=== PATIENT | female | born 1980 | race Caucasian/White ===

== ENCOUNTER 2017-01-02 08:22 | Inpatient (IN) | payer BC ==
[2017-01-02] MEDS ORDERED: Water For Irrigation,Sterile 1,000 ML Container IRR PRN (08:48)
[2017-01-02] MEDS ORDERED: Nalbuphine 10 MG/1 ML Vial IVPUSH PRN (08:48)
[2017-01-02] MEDS ORDERED: Methylergonovine 0.2 MG/1 ML Amp IM PRN (08:48)
[2017-01-02] MEDS ORDERED: Carboprost Tromethamine 250 MCG/1 ML Amp IM PRN (08:48)
[2017-01-02] MEDS ORDERED: Misoprostol 200 MCG Tab PO PRN (08:48)
[2017-01-02] MEDS ORDERED: Lidocaine 1% 50 ML MDV INJECT PRN (08:48)
[2017-01-02] MEDS ORDERED: Sodium Chloride 0.9% 10 ML Syringe FLUSH PRN (08:48)
[2017-01-02] MEDS ORDERED: Sodium Chloride 0.9% 2.5 ML Syringe FLUSH PRN (08:48)
[2017-01-02] MEDS ORDERED: Oxytocin/Lactated Ringers 30 UNIT/500 ML BAG IV SCH (09:00)
[2017-01-02] MEDS: Butorphanol 1 MG/ML SDV IVPUSH PRN ×2 (11:57→14:27)
[2017-01-02] MEDS: Lactated Ringers 1,000 ML IV SCH ×5 (14:25→21:45)
[2017-01-02] MEDS ORDERED: fentaNYL 100 MCG/2 ML SDV ONE (15:06)
[2017-01-02] MEDS ORDERED: Ropivacaine 0.2% 2 MG/ML 20 ML SDV ONE (15:06)
[2017-01-02] MEDS ORDERED: Ropivacaine HCl/PF 100 ML ONE (15:06)
--- NOTE | 2017-01-02 15:38 | PCM.PREANE ---
Preanesthetic Assessment - ANESTHESIA/TRANSFUSION/FAMILY HX Anesthesia/Transfusion History: No Prior Transfusion(s), Prior Anesthesia Type of Anesthesia Reaction: Denies: Allergy, Anesthesia Awareness, Excessive Somnolence, Excessive Nausea/Vomiting, Excessive Itching, Excessive Shivering, Malignant Hyperthermia, Malignant Hyperthermia, Family History, Pseudocholinesterase Deficiency, Pseudocholinesterase Deficiency, Family History of, Urinary Retention, Unknown, Other (see below) Family History of Anesthesia Reaction: No - REVIEW OF SYSTEMS Constitutional: Reports: no symptoms WET END HELPER: Reports: no symptoms, seizure (history of infantile seizures, none as adult ) Respiratory: Reports: no symptoms Cardiovascular: Reports: no symptoms GI: Reports: no symptoms Other: Reports: none - PHYSICAL ASSESSMENT Height: 1.77 m Weight: 89.811 kg NPO Status Date: 01/02/17 NPO Status Time: 15:31 (clear liquids) ASA Class: 2 Mental Status: alert & oriented x3 Airway Class: Mallampati = 2 Dentition: Reports: normal dentition Thyro-Mental Finger Breadths: 3 Mouth Opening Finger Breadths: 3 ROM/Head Extension: full Respiratory Status: lungs clear to auscultation bilaterally Cardiovascular Status: regular rate & rhythm, normal S1, S2, no murmur, blood pressure WNL - LAB Values: Laboratory Last Values WBC 12.99 K/uL (4.0-11.0) H 01/02/17 11:42 RBC 4.18 M/uL (4.30-5.90) L 01/02/17 11:42 Hgb 11.3 g/dL (12.0-16.0) L 01/02/17 11:42 Hct 33.6 % (36.0-46.0) L 01/02/17 11:42 MCV 80.4 fL (80.0-98.0) 01/02/17 11:42 MCH 27.0 pg (27.0-32.0) 01/02/17 11:42 MCHC 33.6 g/dL (31.0-37.0) 01/02/17 11:42 RDW Std Deviation 42.5 fl (28.0-62.0) 01/02/17 11:42 RDW Coeff of Rajinder 15 % (11.0-15.0) 01/02/17 11:42 Plt Count 157 K/uL (150-400) 01/02/17 11:42 MPV 12.30 fL (7.40-12.00) H 01/02/17 11:42 Nucleated RBC % 0.0 /100WBC 01/02/17 11:42 Nucleated RBCs # 0 K/uL 01/02/17 11:42 Blood Type A POSITIVE 01/02/17 11:42 Antibody Screen NEGATIVE 01/02/17 11:42 - ALLERGIES Allergies/Adverse Reactions: Allergies Allergy/AdvReac Type Severity Reaction Status Date / Time animal dander Allergy Itching Verified 11/19/16 00:51 sulfadiazine Allergy Rash Verified 11/19/16 00:51 MMR VACCINE Allergy Vomiting Uncoded 11/19/16 00:51 - BLOOD Blood Available: Yes Product(s) Available: PRBC - ANESTHESIA PLAN Anesthesia Type Planned: epidural - ACKNOWLEDGEMENTS Pt an appropriate candidate for the planned anesthesia: Yes Alternatives and risks of anesthesia discussed w pt/guardian: Yes Pt/Guardian understands and agree with anesthesia plan: Yes PreAnesthesia Questionnaire [employer] P[employer]CHER History: Reports: , Other (see below) Other OB/BYN History: ovarian cyst Neurological History: Reports: Seizure Other Neuro History: seizure as an infant - Past Surgical History Musculoskeletal Surgical History: Reports: Other (see below) Other Musculoskeletal Surgeries/Procedures:: right wrist & left knee surgery - SUBSTANCE USE Smoking Status *Q: Never Smoker Recreational Drug Use History: No - CURRENT (IN HOUSE) MEDS Current Meds: Current Medications Butorphanol Tartrate (Stadol) 1 mg IVPUSH Q1H PRN PRN Reason: Pain Last Admin: 01/02/17 14:27 Dose: 1 mg Carboprost Tromethamine (Hemabate Ds) 250 mcg IM ASDIRECTED PRN PRN Reason: Post Hemorrhage Lactated Ringer's (Ringers, Lactated) 1,000 mls @ 150 mls/hr IV ASDIRECTED LASHELL Last Admin: 01/02/17 15:13 Dose: 150 mls/hr Oxytocin/Lactated Ringer's (Pitocin In Lr 30 Units/500 Ml) 30 unit in 500 mls @ 2 mls/hr IV TITRATE LASHELL; 2 MUNITS/MIN PRN Reason: Protocol Stop: 01/03/17 08:59 Lidocaine HCl (Xylocaine 1%) 50 ml INJECT .ONCE PRN PRN Reason: Laceration repair Methylergonovine Maleate (Methergine) 0.2 mg IM ASDIRECTED PRN PRN Reason: Post Hemorrhage Misoprostol (Cytotec) 200 mcg PO .ONCE PRN PRN Reason: Post Hemorrhage Sodium Chloride (Saline Flush) 10 ml FLUSH ASDIRECTED PRN PRN Reason: Keep Vein Open Sodium Chloride (Saline Flush) 2.5 ml FLUSH ASDIRECTED PRN PRN Reason: Keep Vein Open Sterile Water (Sterile Water For Irrigation) 1,000 ml IRR ASDIRECTED PRN PRN Reason: delivery Discontinued Medications Fentanyl (Sublimaze) Confirm Administered Dose 300 mcg .ROUTE .STK-MED ONE Stop: 01/02/17 15:07 Ropivacaine (Naropin 0.2%) Confirm Administered Dose 100 mls @ as directed .ROUTE .STK-MED ONE Stop: 01/02/17 15:07 Nalbuphine HCl (Nubain) 10 mg IVPUSH Q1H PRN PRN Reason: Pain (severe 7-10) Stop: 01/02/17 10:49 Ropivacaine (Naropin 0.2%) Confirm Administered Dose 20 ml .ROUTE .STK-MED ONE Stop: 01/02/17 15:07 - Free Text/Narrative Note: Labor Analgesia/Epidural Procedure start date: 01/02/17 time: 1448 Attending provider aware Chart reviewed Permit signed Labs reviewed VS/FHR reviewed Pt identified/ID band Pt assessed Risks/Benefits discussed and accepted Monitors in place (BP, HR, SPO2) Patient, Site, Procedure Verification, Pause. pain "10/10" Fluid bolus infused (fluid type and amount): 1200 ml LR Position: Sitting @1454 Prep: Betadine X 3 Sterile Drape Intradermal Wheal: 3 ml 1% Lidocaine Regional placement level: L3-4 Needle: 17 g Tuohy Approach: Midline Technique: TRU glass syringe with 3 ml Sterile water TRU needle depth: 5 cm Paresthesia: None Fluid Obtained: None Catheter insertion time: 1500 Catheter depth at skin: 20 cm Test Dose Time: 1501 RX: 3 ml 1.5% lidocaine with 1:200,000 epi Response: Negative Loading dose Time: 8379-2270 RX: 100 mcg fentanyl followed by 5 ml 0.2% ropivacaine Pt position: semi fowlers with ANDREA Continuous infusion Start Time: 1516 RX: 100 ml 0.2% ropivacaine with 200 mcg fentanyl added Continuous infusion rate: 8 ml/hr BATH HOUSE ATTENDANT bolus option: 5 ml every 15 min Pt response Post procedure pain level: "0/10" VS and FHR monitored in unit post placement (See OB traceview for documentation. ) Procedure end date: 01/02/17 time: 154
[2017-01-02] MEDS ORDERED: Acetaminophen 500 MG Tab PO ONE (21:32)
[2017-01-02] MEDS ORDERED: ceFAZolin 2 GM in Premix Bag 1 BAG IV ONE (21:33)
[2017-01-03] MEDS ORDERED: Bisacodyl 10 MG Supp RECTAL PRN (03:43)
[2017-01-03] MEDS ORDERED: Lanolin 100% Cream 7 GM Tube TOP PRN (03:43)
[2017-01-03] MEDS ORDERED: Docusate Sodium 100 MG Cap PO PRN (03:43)
[2017-01-03] MEDS ORDERED: Benzocaine/Menthol 20%-0.5% Spray 78 GM Cannister TOP PRN (03:43)
[2017-01-03] MEDS ORDERED: Witch Hazel Medicated Pads 40/Jar TOP PRN (03:43)
[2017-01-03] MEDS ORDERED: Acetaminophen 500 MG Tab PO PRN (03:43)
[2017-01-03] MEDS ORDERED: Ibuprofen 800 MG Tab PO PRN (03:43)
[2017-01-03] MEDS ORDERED: oxyCODONE 5 MG Tab PO PRN (03:43)
[2017-01-03] MEDS ORDERED: ceFAZolin 2 GM in Premix Bag 1 BAG IV SCH (04:00)
--- NOTE | 2017-01-03 04:48 | PCM48HPAN ---
Post Anesthesia Note - EVALUATION WITHIN 48HRS OF ANESTHETIC Vital Signs in Normal Range: Yes Patient Participated in Evaluation: Yes Respiratory Function Stable: Yes Airway Patent: Yes Cardiovascular Function Stable: Yes Hydration Status Stable: Yes Pain Control Satisfactory: Yes Nausea and Vomiting Control Satisfactory: Yes Mental Status Recovered: Yes - COMMENTS/OBSERVATIONS Free Text/Narrative:: Pt has full return of sensation and motor movement to lower extremities. Denies headache or any other problems associated with epidural.
--- NOTE | 2017-01-04 00:57 | OR ---
SURGEON: Susan Mcintosh DATE OF PROCEDURE: 01/03/2017 BRIEF PRE-DELIVERY HISTORY: This is a 36-year-old, G1, P0, who presented to Labor and Delivery with complaints of painful uterine contractions. The patient was admitted after she was found to be 3 to 4 cm dilated, 70% effaced, and -1 station. Eventually, amniotomy was performed for clear fluid. The patient got progressively uncomfortable and received her epidural after Jacuzzi and IV pain medications were no longer helping with the pain. The patient when examined was found to be 6 cm dilated. The patient with cervical exam had no significant cervical change after several hours of being 6 cm. The patient's labor was augmented with IV Pitocin. heart tracing was significant overall for category 1 status, but intermittently there were prolonged contractions. There were late decelerations and areas of tachysystole. Pitocin was turned on and off. The patient was repositioned. The patient was given oxygen. Eventually, scalp electrode was placed followed by an IUPC. The amniotic fluid was eventually noted to be stained from meconium. The patient eventually progressed to completely dilated and +2 status and started maternal expulsive efforts. PREOPERATIVE DIAGNOSES: 1. Intrauterine at 40 weeks and 3 days. 2. Group B streptococcus negative. 3. Labor augmentation with Pitocin. 4. Maternal pyrexia. POSTOPERATIVE DIAGNOSES: 1. Intrauterine at 40 weeks and 3 days. 2. Delivered. 3. Second-degree vaginal laceration. PROCEDURES PERFORMED: 1. Spontaneous assisted vaginal delivery. 2. Repair of midline second-degree vaginal laceration. ESTIMATED BLOOD LOSS: 250. ANESTHESIA: Epidural and local. FINDINGS: A viable female in vertex presentation with score of 8 and 9 at 1 and 5 minutes respectively and weight of 3640 g. Normal intact placenta with 3- vessel cord. Midline second-degree vaginal laceration. Normal intact placenta with 3-vessel cord. CONDITION: Postoperatively, the patient and tolerated the procedure well. DESCRIPTION OF PROCEDURE: This female under epidural anesthesia delivered a viable female infant with score of 8 and 9 and weight of 3640 g. Delivery was spontaneous vaginal delivery. Upon delivery of infant vertex, the neck was checked. There was a nuchal to be reduced. With gentle downward traction, the anterior shoulder was delivered followed by the body. The infant was not stimulated at first secondary to meconium and health unit clerk was present at delivery. The infant was briefly bulb suctioned prior to passing off to the waiting health unit clerk. The infant was vigorous at delivery. After delivery of the , the cord blood and cord gases were collected and sent for analysis. IV Pitocin was started in bolus fashion to prevent excessive maternal blood loss and to help expel the placenta. With signs of placental separation, a fundal massage was completed along with traction on the umbilical cord, a normal intact placenta with 3-vessel cord was delivered. After delivery of infant and placenta, the vagina, perineum, and rectum were explored and the patient had an intact perineum and a midline second-degree vaginal laceration that just required usage of 3-0 Vicryl suture in a running, locked fashion in a two-layer closure. Afterwards, the lower uterine segment and vagina was cleared of all clots and debris. The patient was cleansed. Pads were changed. Bed was returned to functioning status. The patient and tolerated the procedure well. MIKAEL CARSON /[id number] MTDD
--- NOTE | 2017-01-04 08:16 | PCM.PNPP ---
- General Info Date of Service: 01/04/17 Functional Status: Reports: pain controlled, tolerating diet, ambulating, urinating - Review of Systems General: Reports: no symptoms HEENT: Reports: no symptoms Pulmonary: Reports: no symptoms Cardiovascular: Reports: no symptoms Gastrointestinal: Reports: No symptoms Genitourinary: Reports: no symptoms Musculoskeletal: Reports: no symptoms Skin: Reports: no symptoms Neurological: Reports: no symptoms Psychiatric: Reports: no symptoms - General Info Date of Service: 01/04/17 - Patient Data Vital Signs - most recent: Last Vital Signs Temp 36.7 C 01/04/17 03:27 Pulse 88 01/04/17 03:27 Resp 16 01/04/17 03:27 BP 99/56 L 01/04/17 03:27 Pulse Ox 98 01/04/17 03:27 Weight - most recent: 89.811 kg Lab Results - last 24 hrs: Laboratory Results - last 24 hr 01/04/17 Range/Units 04:42 Hgb 9.4 L (12.0-16.0) g/dL Hct 29.2 L (36.0-46.0) % Med Orders - Current: Current Medications Acetaminophen (Tylenol Extra Strength) 500 mg PO Q4H PRN PRN Reason: Pain Benzocaine/Menthol (Dermoplast Pain Relief 20%-0.5% [place]) 78 gm TOP ASDIRECTED PRN PRN Reason: Perineal Comfort Measure Bisacodyl (Dulcolax) 10 mg RECTAL .ONCE PRN PRN Reason: Constipation Butorphanol Tartrate (Stadol) 1 mg IVPUSH Q1H PRN PRN Reason: Pain Last Admin: 01/02/17 14:27 Dose: 1 mg Carboprost Tromethamine (Hemabate Ds) 250 mcg IM ASDIRECTED PRN PRN Reason: Post Hemorrhage Docusate Sodium (Colace) 100 mg PO BID PRN PRN Reason: Constipation Emollient Ointment (Lansinoh Hpa) 0 gm TOP ASDIRECTED PRN PRN Reason: Sore Nipples Lactated Ringer's (Ringers, Lactated) 1,000 mls @ 150 mls/hr IV ASDIRECTED LASHELL Last Admin: 01/02/17 21:45 Dose: 150 mls/hr Ibuprofen (Motrin) 800 mg PO Q6H PRN PRN Reason: Pain Last Admin: 01/03/17 10:51 Dose: 800 mg Lidocaine HCl (Xylocaine 1%) 50 ml INJECT .ONCE PRN PRN Reason: Laceration repair Last Admin: 01/03/17 02:55 Dose: 50 ml Methylergonovine Maleate (Methergine) 0.2 mg IM ASDIRECTED PRN PRN Reason: Post Hemorrhage Misoprostol (Cytotec) 200 mcg PO .ONCE PRN PRN Reason: Post Hemorrhage Oxycodone HCl (Oxycodone) 5 mg PO Q2H PRN PRN Reason: Pain Sodium Chloride (Saline Flush) 10 ml FLUSH ASDIRECTED PRN PRN Reason: Keep Vein Open Sodium Chloride (Saline Flush) 2.5 ml FLUSH ASDIRECTED PRN PRN Reason: Keep Vein Open Sterile Water (Sterile Water For Irrigation) 1,000 ml IRR ASDIRECTED PRN PRN Reason: delivery Witch [place] (Tucks) 1 pad TOP ASDIRECTED PRN PRN Reason: comfort care Discontinued Medications Acetaminophen (Tylenol Extra Strength) 1,000 mg PO ONETIME ONE Stop: 01/02/17 21:33 Last Admin: 01/02/17 21:43 Dose: 1,000 mg Fentanyl (Sublimaze) Confirm Administered Dose 300 mcg .ROUTE .STK-MED ONE Stop: 01/02/17 15:07 Last Admin: 01/02/17 19:37 Dose: Not Given Oxytocin/Lactated Ringer's (Pitocin In Lr 30 Units/500 Ml) 30 unit in 500 mls @ 2 mls/hr IV TITRATE LASHELL; 2 MUNITS/MIN PRN Reason: Protocol Stop: 01/03/17 08:59 Last Titration: 01/03/17 01:25 Dose: 4 munits/min, 4 mls/hr Ropivacaine (Naropin 0.2%) Confirm Administered Dose 100 mls @ as directed .ROUTE .STK-MED ONE Stop: 01/02/17 15:07 Last Admin: 01/02/17 19:36 Dose: Not Given Cefazolin Sodium/Dextrose 2 gm (/ Premix) 50 mls @ 100 mls/hr IV ONETIME ONE Stop: 01/02/17 22:02 Last Admin: 01/02/17 21:44 Dose: 100 mls/hr Cefazolin Sodium/Dextrose 2 gm (/ Premix) 50 mls @ 100 mls/hr IV Q8H [facility] Last Admin: 01/03/17 09:33 Dose: Not Given Nalbuphine HCl (Nubain) 10 mg IVPUSH Q1H PRN PRN Reason: Pain (severe 7-10) Stop: 01/02/17 10:49 Ropivacaine (Naropin 0.2%) Confirm Administered Dose 20 ml .ROUTE .STK-MED ONE Stop: 01/02/17 15:07 Last Admin: 01/02/17 19:36 Dose: Not Given - Infant Interaction Infant Disposition, : [place] in Room with Family Interaction: Holding Infant Infant Feeding: Attempted ; Nursed Fair/Poor, Continues to Breastfeed Support Person: - Recovery Exam Fundal Tone: Firm Fundal Level: At Umbilicus Fundal Placement: Midline Lochia Amount: Small Lochia Color: Rubra/Red Perineum Description: Intact, Minimal Bruising/Swelling Other Perinuem Description: 2nd degree laceration with repair Episiotomy/Laceration: Approximated Bladder Status: Voiding Urinary Elimination: Voided - Exam General: alert, oriented Neck: supple Lungs: Clear to auscultation, Normal respiratory effort Cardiovascular: regular rate, regular rhythm Abdomen: bowel sounds present, soft, no tenderness Extremities: no calf tenderness Skin: warm, dry, intact Neurological: no new focal deficit Psy/Mental Status: alert, normal affect, normal mood - Problem List & Annotations (1) Vaginal delivery SNOMED Code(s): 390014618 Code(s): O80 - ENCOUNTER FOR FULL-TERM UNCOMPLICATED DELIVERY Status: Acute Current Visit: Yes - Problem List Review Problem List Initiated/Reviewed/Updated: Yes - My Orders Last 24 Hours: My Active Orders 01/04/17 08:12 Ready for Discharge [RC] PER UNIT ROUTINE - Assessment Assessment:: PPD#1 S/p SAVD Doing well Desires discharge home today - Plan Plan:: Pelvic rest for 6wks Bleeding precautions given Infection precautions given Thrombotic precautions given blues/depression precautions given
[2017-01-04 10:29] VITALS: BP 116/72
== END 2017-01-04 12:10 | disposition home or self-care (01) | DRG 560 ==
LOC: MW.OBCHECK 08:22 → MW.OB 08:28 → MW.OBCHECK 08:55 → OBSVTOIN 01-03 02:39 → MW.OB 01-03 09:37
PROVIDERS: ADMIT Obstetrics & Gynecology; ATTEND Obstetrics & Gynecology
PROC: 10E0XZZ Delivery of Products of Conception, External Approach (ICD-10-PCS; principal; 2017-01-03)
PROC: 0KQM0ZZ Repair Perineum Muscle, Open Approach (ICD-10-PCS; 2017-01-03)
PROC: 10907ZC Drainage of Amniotic Fluid, Therapeutic from Products of Conception, Via Natural or Artificial Opening (ICD-10-PCS; 2017-01-03)
DX: O70.1 Second degree perineal laceration during delivery (principal); O75.2 Pyrexia during labor, not elsewhere classified; Z3A.40 40 weeks gestation of pregnancy; Z37.0 Single live birth
CPT/HCPCS: 01967; 36415; 59025; 85014; 85018; 85027; 86850; 86900; 86901; A9270-GY; J0595; J0690; J7120

== ENCOUNTER 2021-01-04 02:58 | Inpatient (IN) | payer BC ==
[2021-01-04] MEDS ORDERED: Sodium Chloride 0.9% 10 ML SDV IV PRN (03:19)
[2021-01-04] MEDS ORDERED: Carboprost Tromethamine 250 MCG/1 ML Amp IM PRN (03:19)
[2021-01-04] MEDS ORDERED: Sodium Chloride 0.9% 10 ML Syringe FLUSH PRN (03:19)
[2021-01-04] MEDS ORDERED: Nalbuphine 10 MG/1 ML Vial IVPUSH PRN (03:19)
[2021-01-04] MEDS ORDERED: Sodium Chloride 0.9% 2.5 ML Syringe FLUSH PRN (03:19)
[2021-01-04] MEDS ORDERED: Tranexamic Acid 1,000 MG in Sodium Chloride 0.9% 100 ML IV PRN (03:19)
[2021-01-04] MEDS ORDERED: Butorphanol 1 MG/ML SDV IVPUSH PRN (03:19)
[2021-01-04] MEDS ORDERED: Lidocaine 1% 50 ML MDV INJECT PRN (03:19)
[2021-01-04] MEDS ORDERED: Water For Irrigation,Sterile 1,000 ML Container IRR PRN (03:19)
[2021-01-04] MEDS ORDERED: Methylergonovine 0.2 MG/1 ML Amp IM PRN (03:19)
[2021-01-04] MEDS ORDERED: Misoprostol 200 MCG Tab PO PRN (03:19)
[2021-01-04] MEDS ORDERED: Oxytocin/0.9 % Sodium Chloride 30 UNIT/500 ML BAG ONE (03:20)
[2021-01-04] MEDS ORDERED: Lactated Ringers 1,000 ML IV SCH (03:30)
[2021-01-04] MEDS ORDERED: Oxytocin/0.9 % Sodium Chloride 30 UNIT/500 ML BAG IV SCH (03:30)
[2021-01-04] MEDS ORDERED: Oxytocin 10 Units/1 ML SDV ONE (03:45)
[2021-01-04] MEDS ORDERED: Lidocaine 1% 50 ML MDV ONE (03:45)
[2021-01-04] MEDS ORDERED: Benzocaine/Menthol 20%-0.5% Spray 78 GM Cannister TOP PRN (04:23)
[2021-01-04] MEDS ORDERED: oxyCODONE 5 MG Tab PO PRN (04:23)
[2021-01-04] MEDS ORDERED: Acetaminophen 500 MG Tab PO PRN (04:23)
[2021-01-04] MEDS ORDERED: Bisacodyl 10 MG Supp RECTAL PRN (04:23)
[2021-01-04] MEDS ORDERED: Witch Hazel Medicated Pads 40/Jar TOP PRN (04:23)
[2021-01-04] MEDS ORDERED: Docusate Sodium 100 MG Cap PO PRN (04:23)
[2021-01-04] MEDS ORDERED: Lanolin 100% Cream 7 GM Tube TOP PRN (04:23)
--- NOTE | 2021-01-04 04:29 | PCM.DEL ---
L & D Note - General Info Date of Service: 01/04/21 Mother's Due Date: 01/06/21 - Delivery Note Labor: Spontaneous Delivery Outcome: Livebirth Infant Delivery Method: Spontaneous Vaginal Delivery-Single Presentation: Vertex Nuchal Cord: None Anesthesia Type: Local Anesthetic: Lidocaine (Xylocaine) 1% Plain Local Anesthetic Volume: 5cc Amniotic Fluid Description: Clear Episiotomy Type: None Laceration: 1st Degree Suture type: Vicryl Suture size: 3-0 Placenta: Intact, Spontaneous Cord: 3 Vessels Estimated Blood Loss: 300 Resuscitation Needed: No [place]: Suctioned, Bulb Syringe, Stimulated, Warmed, Warmer Used Score 1 min: 8 Score 5 min: 9 Delivery Comments (Free Text/Narrative):: Live female infant - General Info Date of Service: 01/04/21 - Patient Data Weight - Most Recent: 93.44 kg Lab Results Last 24 Hours: Laboratory Results - last 24 hr 01/04/21 01/04/21 Range/Units 03:20 03:20 WBC 17.23 H (4.0-11.0) K/uL RBC 4.45 (4.30-5.90) M/uL Hgb 11.4 L (12.0-16.0) g/dL Hct 34.5 L (36.0-46.0) % MCV 77.5 L (80.0-98.0) fL MCH 25.6 L (27.0-32.0) pg MCHC 33.0 (31.0-37.0) g/dL RDW Std Deviation 42.0 (28.0-62.0) fl RDW Coeff of Rajinder 15 (11.0-15.0) % Plt Count 201 (150-400) K/uL MPV 12.80 H (7.40-12.00) fL Nucleated RBC % 0.0 /100WBC Nucleated RBCs # 0 K/uL Blood Type A POSITIVE Antibody Screen NEGATIVE - Problem List & Annotations (1) Vaginal delivery SNOMED Code(s): 337281032 Code(s): O80 - ENCOUNTER FOR FULL-TERM UNCOMPLICATED DELIVERY Status: Acute Current Visit: No - Problem List Review Problem List Initiated/Reviewed/Updated: Yes - My Orders Last 24 Hours: My Active Orders 01/04/21 03:19 Patient Status [ADT] Routine May Shower [RC] ASDIRECTED Notify Provider [RC] PRN Up ad Vani [RC] ASDIRECTED Vital Signs [RC] PER UNIT ROUTINE Butorphanol [Stadol] 1 mg IVPUSH Q1H PRN Carboprost Tromethamine [Hemabate DS] 250 mcg IM ASDIRECTED PRN Lidocaine 1% [Xylocaine 1%] 50 ml INJECT ONETIME PRN Methylergonovine [Methergine] 0.2 mg IM ASDIRECTED PRN Nalbuphine [Nubain] 10 mg IVPUSH Q1H PRN Sodium Chloride 0.9% [Normal Saline] 10 ml IV ASDIRECTED PRN Sodium Chloride 0.9% [Saline Flush] 10 ml FLUSH ASDIRECTED PRN Sodium Chloride 0.9% [Saline Flush] 2.5 ml FLUSH ASDIRECTED PRN Tranexamic Acid [Cyklokapron] 1,000 mg Sodium Chloride 0.9% [Normal Saline] 100 ml IV ONETIME Water For Irrigation,Sterile [Sterile Water for Irrigation] 1,000 ml IRR ASDIRECTED PRN miSOPROStoL [Cytotec] 200 mcg PO ONETIME PRN Scalp Electrode [WOMSER] Per Unit Routine Peripheral IV Insertion Adult [OM.PC] Routine Resuscitation Status Routine 01/04/21 03:20 RPR (SYPHILIS SERO) W/ RFLX [REF] Routine 01/04/21 03:30 Lactated Ringers [Ringers, Lactated] 1,000 ml IV ASDIRECTED Oxytocin/0.9 % Sodium Chloride [Oxytocin 30 Unit/500 ML-NS] 30 unit in 500 ml IV TITRATE 01/04/21 04:23 Patient Status [ADT] Routine May Shower [RC] ASDIRECTED Notify Provider Vital Signs [RC] ASDIRECTED Up ad Vani [RC] ASDIRECTED Vital Signs [RC] PER UNIT ROUTINE Acetaminophen [Tylenol Extra Strength] 1,000 mg PO Q6H PRN Benzocaine/Menthol [Dermoplast Pain Relief 20%-0.5% [place]] 78 gm TOP ASDIRECTED PRN Docusate Sodium [Colace] 100 mg PO BID PRN Ibuprofen [Motrin] 800 mg PO Q8H PRN Lanolin [Lansinoh HPA] See Dose Instructions TOP ASDIRECTED PRN bisacodyL [Dulcolax] 10 mg RECTAL ONETIME PRN oxyCODONE 5 mg PO Q2H PRN witch [place] [Tucks] 1 pad TOP ASDIRECTED PRN Assess Lochia [WOMSER] Per Unit Routine Assess Uterine Involution [WOMSER] Per Unit Routine Breast Pump [WOMSER] Per Unit Routine Peripheral IV Discontinue [OM.PC] Routine 01/04/21 04:24 Cooling Warming Measures [RC] ASDIRECTED Ice Therapy [OM.PC] Per Unit Routine Perineal Care [OM.PC] Per Unit Routine Sitz Bath [OM.PC] Per Unit Routine 01/04/21 Breakfast Regular Diet [DIET] 01/05/21 05:11 HEMOGLOBIN/HEMATOCRIT,HH [HEME] Timed - Assessment Assessment:: 40yo s/p at 39w5d - Plan Plan:: Admit to unit for routine care. IV came out during delivery, received 10U IM Pitocin during third stage of labor.
[2021-01-04] MEDS: Ibuprofen 800 MG Tab PO PRN (04:49)
--- NOTE | 2021-01-04 05:37 | OR ---
SURGEON: Mey Flynn MD DATE OF PROCEDURE: 01/04/2021 PREOPERATIVE DIAGNOSES: 1. A 40-year-old G2, P1-0-0-1 at 39 weeks 5 days gestation. 2. Labor. 3. Group B Streptococcus negative. 4. Advanced maternal age. POSTOPERATIVE DIAGNOSES: 1. A 40-year-old G2, P2-0-0-2 at 39 weeks and 5 days gestation. 2. Labor. 3. Group B Streptococcus negative. 4. Advanced maternal age. 5. First-degree perineal laceration. PROCEDURE: Spontaneous vaginal delivery and repair of first-degree perineal laceration PRIMARY SURGEON: Mey Flynn MD. ANESTHESIA: Local. ESTIMATED BLOOD LOSS: 300 mL. FINDINGS: Live female , cephalic presentation. score of 8 and 9 at one and five minutes respectively. Weight pending. Placenta intact with 3-vessel cord. First-degree perineal laceration. INDICATIONS: This is a 40-year-old G2, P1-0-0-1 who presented at 39 weeks and 5 days gestation complaining of rupture of membranes and labor. Upon presentation, her cervix was found to be 6 cm dilated and rupture of membranes was confirmed. She progressed to complete cervical dilation shortly thereafter. DESCRIPTION OF PROCEDURE: I arrived to the room with head at +3 station. Over the next 5 contractions, the patient pushed and delivered a live female . The head was delivered, followed quickly by the shoulders and remainder of the body. The was placed on maternal abdomen. After approximately 60 seconds, the cord was clamped and cut. Cord blood was obtained. The placenta then delivered intact with 3-vessel cord. The perineum was inspected and a first-degree perineal laceration was noted. This was repaired to anatomy and hemostasis with 3-0 Vicryl after infiltration with 1% lidocaine. During delivery of the placenta, the patient's IV came out. She received 10 units of intramuscular Pitocin for uterine tone. The fundus was firm below the umbilicus with minimal bleeding. The patient and infant tolerated the delivery well. DANIELLE / KRISTIANL /[id number] MTDPeg
[2021-01-05 08:17] VITALS: BP 115/75; PULSE 81
--- NOTE | 2021-01-05 08:44 | PCM.PNPP ---
- General Info Date of Service: 01/05/21 Functional Status: Reports: Pain Controlled, Tolerating Diet, Ambulating, Urinating - Review of Systems General: Reports: Fatigue. Denies: Fever, Weakness Pulmonary: Denies: Shortness of Breath Cardiovascular: Denies: Chest Pain, Palpitations, Lightheadedness Gastrointestinal: Denies: Abdominal Pain, Nausea, Vomiting Genitourinary: Denies: Flank Pain Musculoskeletal: Reports: No Symptoms Skin: Reports: No Symptoms Neurological: Reports: No Symptoms Psychiatric: Reports: No Symptoms - General Info Date of Service: 01/05/21 - Patient Data Vital Signs - Most Recent: Last Vital Signs Temp 36.9 C 01/05/21 07:45 Pulse 81 01/05/21 07:45 Resp 17 01/05/21 07:45 BP 115/75 01/05/21 07:45 Pulse Ox 96 01/05/21 07:45 Weight - Most Recent: 81.647 kg Lab Results - Last 24 Hours: Laboratory Results - last 24 hr 01/05/21 Range/Units 05:51 Hgb 10.0 L (12.0-16.0) g/dL Hct 31.2 L (36.0-46.0) % - Infant Interaction Support Person: - Recovery Exam Fundal Tone: Firm Fundal Level: 1 Fingerbreadths Below Umbilicus Fundal Placement: Midline Lochia Amount: Scant Lochia Color: Rubra/Red Perineum Description: Other (see below) Other Perinuem Description: 1st degree repaired laceration Episiotomy/Laceration: Approximated Bladder Status: Voiding Urinary Elimination: Voided - Exam General: Alert, Oriented Lungs: Normal Respiratory Effort Cardiovascular: Regular Rate, Regular Rhythm GI/Abdominal Exam: Normal Bowel Sounds, Soft Extremities: Pedal Edema (trace). No: Adelaida's Sign Skin: Warm, Dry, Intact Neurological: No New Focal Deficit Psy/Mental Status: Alert, Normal Affect, Normal Mood - Problem List & Annotations (1) Vaginal delivery SNOMED Code(s): 824271417 Code(s): O80 - ENCOUNTER FOR FULL-TERM UNCOMPLICATED DELIVERY Status: Acute Current Visit: No - Problem List Review Problem List Initiated/Reviewed/Updated: Yes - My Orders Last 24 Hours: My Active Orders 01/05/21 08:42 Ready for Discharge [RC] PER UNIT ROUTINE - Assessment Assessment:: 40yo PPD 1 at 39w5d - Plan Plan:: Doing well overall. VS and labs are reassuring. Would like to go home today. DIscharge instructions reviewed. Follow up at [facility] 4 weeks. Discharge to home.
[2021-01-05] MEDS: Ibuprofen 800 MG Tab PO PRN (09:30)
== END 2021-01-05 11:43 | disposition home or self-care (01) | DRG 560 ==
LOC: MW.OBCHECK 02:58 → MW.OB 02:59 → UNDOADMOB 03:00 → MW.OB 03:00 → MW.OBCHECK 03:00 → MW.OB 03:19 → OBSVTOIN 04:23 → MW.OB 07:06
PROVIDERS: ADMIT Obstetrics & Gynecology; ATTEND Obstetrics & Gynecology
PROC: 10E0XZZ Delivery of Products of Conception, External Approach (ICD-10-PCS; principal; 2021-01-04)
PROC: 0HQ9XZZ Repair Perineum Skin, External Approach (ICD-10-PCS; 2021-01-04)
DX: O70.0 First degree perineal laceration during delivery (principal); Z3A.39 39 weeks gestation of pregnancy; Z37.0 Single live birth
CPT/HCPCS: 36415; 59025; 59409; 85014; 85018; 85027; 86592; 86850; 86900; 86901; A9270-GY